=== PATIENT | female | born 1935 | race Caucasian/White ===

== ENCOUNTER 2016-11-21 12:48 | Day surgery (SDC) | payer OTHER, MEDICARE ==
[2016-11-20 11:37] VITALS: BMI 29.8
[2016-11-21] MEDS ORDERED: MIDAZOLAM HCL 2 MG/2 ML SINGLE DOSE VIAL ONE (14:02)
[2016-11-21] MEDS ORDERED: LIDOCAINE HCL/PF 2% SDV 5ML VIAL ONE (14:03)
[2016-11-21] MEDS ORDERED: PROPOFOL 20 ML ONE ×3 (14:03→15:14)
[2016-11-21] MEDS ORDERED: DEXAMETHASONE SOD PHOSPHATE 4 MG/1 ML VIAL ONE (14:03)
[2016-11-21] MEDS ORDERED: SUCCINYLCHOLINE CHLORIDE 200 MG/10 ML VIAL ONE (14:07)
--- NOTE | 2016-11-21 14:44 | HP ---
Past Medical History - Primary Care Physician PCP:: Truong Escobar - Admission Chief Complaint: 81 yo female with endometrial fluid and hepertrophy on pelvic US admitted for hysteroscopy and D&C - Past Medical History BIOMEDICAL ENGINEERING TECHNICIAN: Yes: Other (recent head trauma after fall with hematoma that resolved) Cardiovascular: Yes: Hyperlipdemia Pulmonary: No: Asthma, Bronchitis, Cancer, COPD, O2 Dependent, Pneumonia, Previously Intubated, Pulmonary Embolus, Pulmonary Fibrosis, Sleep Apnea, Other Gastrointestinal: Yes: Other (cholelithiasis) Hepatobiliary: Yes: Cholelithiasis Renal/: No: Renal Failure, Renal Inusuff, BPH, Cancer, Hematuria, Hemodialysis , Neurogenic Bladder, Renal Calculi, UTI, Other ...Para: 2 ( x 2) Heme/Onc: No: Anemia, B12 Deficiency, Bleeding Disorder, Cancer, Current Chemotherapy, Current Radiation Therapy, Hemochromatosis, Hypercoaguable State, Myeloproliferative Synd, Sickle Cell Disease, Sickle Cell Trait, Thrombocytopenia, Other Infectious Disease: No: AIDS, C-Diff, Herpes Zoster, HIV, MRSA, STD's, Tuberculosis, VREF, Other Psych: No: Addictions, Anxiety, Bipolar, Depression, Panic, Psychosis, Schizophrenia, Other Musculoskeletal: No: Bursitis, Chronic low back pain, Hemiparesis, Hemiplegia, Osteoarthritis, Paraplegia, Other Rheumatology: No: Fibromyalgia, Gout, Lupus, Rheumatoid Arthritis, Sarcoidosis, Vasculitis, Other ENT: No: Allergic Rhinitis, Sinusitis, Other Endocrine: No: [place]'s Disease, [place]'s Disease, Diabetes Insipidus, Diabetes Mellitus, Hyperparathyroidism, Hyperthyroidism, Hypothyroidism, Osteopenia, SIADH, Other Dermatology: No: Basal Cell, Cellulitis, Eczema, Melanoma, Psoriasis, Squamous Cell, Other Additional Medical History: High cholesterol - Past Surgical History Past Surgical History: Yes: Arthrosocopy (Left knee, ancle), Breast Biopsy ( left breast lumpectomy and rad tx), Cholecystectomy Hx Myomectomy: No Hx Transabdominal Cerclage: No Additional Surgical History: D&C x 2 - Advance Directives Advance Directives: Yes: Living Will - Smoking History Smoking history: Former smoker Have you smoked in the past 12 months: No If you are a former smoker, when did you quit?: ~1984 - Alcohol/Substance Use Hx Alcohol Use: Yes (SOCIALLY) History of Substance Use: reports: None - Social History Usual Living Arrangement: Yes: Alone ADL: Independent Occupation: Retired History of Recent Travel: No Home Medications - Allergies Allergies/Adverse Reactions: Allergies Allergy/AdvReac Type Severity Reaction Status Date / Time Sulfa (Sulfonamide Allergy Severe Rash Verified 01/09/16 07:46 Antibiotics) - Home Medications Home Medications: Ambulatory Orders Timolol 0.25% [Timoptic 0.25%] 1 drop OD DAILY 01/06/16 Cholecalciferol (Vitamin D3) [Vitamin D3] 2,000 unit PO DAILY 11/20/16 Fluticasone/Vilanterol [Breo Ellipta 100-25 Mcg INH] 1 each IH DAILY 11/20/16 Zolpidem Tartrate [Ambien] 5 mg PO HS 11/20/16 Family Disease History - Family Disease History Family History: Unremarkable Review of Systems - Review of Systems Constitutional: reports: No Symptoms Eyes: reports: No Symptoms HENT: reports: No Symptoms Neck: reports: No Symptoms Cardiovascular: reports: No Symptoms Respiratory: reports: No Symptoms Gastrointestinal: reports: No Symptoms Genitourinary: reports: No Symptoms Breasts: reports: No Symptoms Reported Musculoskeletal: reports: No Symptoms Integumentary: reports: No Symptoms Neurological: reports: No Symptoms Endocrine: reports: No Symptoms Hematology/Lymphatic: reports: No Symptoms Psychiatric: reports: No Symptoms Pain Intensity: 0 Physical Exam-SERVICE CONSULTANT Vital Signs: Vital Signs Temperature 97.4 F L 11/21/16 13:46 Pulse Rate 61 11/21/16 13:46 Respiratory Rate 18 11/21/16 13:46 Blood Pressure 143/75 11/21/16 13:46 O2 Sat by Pulse Oximetry (%) 95 11/21/16 13:46 Constitutional: Yes: Well Nourished, No Distress, Calm Eyes: Yes: WNL, Conjunctiva Clear, EOM Intact HENT: Yes: WNL, Atraumatic, Normocephalic Neck: Yes: WNL, Supple, Trachea Midline Cardiovascular: Yes: WNL, Regular Rate and Rhythm Respiratory: Yes: WNL, Regular, CTA Bilaterally Gastrointestinal: Yes: WNL, Normal Bowel Sounds, Soft ...Rectal Exam: Yes: Deferred Renal/: Yes: WNL Pelvis: Yes: WNL External Genitalia: Yes: Normal Internal Exam Deferred: No Vaginal Exam: Yes: Normal Cervix: Yes: Normal Uterus: Yes: Normal Adnexa: Normal: Left, Right Musculoskeletal: Yes: WNL Extremities: Yes: WNL Edema: No Integumentary: Yes: WNL Neurological: Yes: WNL, Alert, Oriented ...Motor Strength: WNL Psychiatric: Yes: WNL, Alert, Oriented Imaging - Results Ultrasound: Report Reviewed Assessment/Plan 81 yo female with endometrial fluid and hypertrophy on pelvic US admitted for hysteroscopy and D&C. The risks, benefits, alternatives of surgery were discussed. The risks of infection, bleeding, perforation, pain, scarring, etc were discussed. The pt requested to proceed.
[2016-11-21] MEDS ORDERED: ceFAZolin SODIUM 1 GM VIAL ONE (15:20)
[2016-11-21] MEDS ORDERED: ceFAZolin SODIUM 1 GM VIAL IVPB ONE (15:20)
[2016-11-21] MEDS ORDERED: oxyCODONE HCL 5 MG TABLET PO PRN (15:42)
[2016-11-21] MEDS ORDERED: IBUPROFEN 800 MG/8 ML IJ IVPB PRN (15:42)
[2016-11-21] MEDS ORDERED: ONDANSETRON 4 MG/2 ML VIAL IVPUSH PRN (15:42)
[2016-11-21] MEDS ORDERED: LACTATED RINGERS SOLUTION 1,000 ML IV SCH (15:45)
[2016-11-21] MEDS ORDERED: IBUPROFEN 800 MG/8 ML IJ IVPB ONE (15:54)
--- NOTE | 2016-11-21 16:02 | OP ---
Operative Note - Note: Operative Date: 11/21/16 Pre-Operative Diagnosis: Endometrial Hyperplasia. Personal Hx breast malignancy Operation: Hysteroscopy, D&C Findings: Enlarged uterine cavity with hematometria and atrophic endometrial atrophy. Post-Operative Diagnosis: Same as Pre-op Surgeon: Truong Escobar Anesthesiologist/TRUCK REPAIR SERVICE ESTIMATOR: Marily Barrow Anesthesia: MAC Specimens Removed: Endometrial curettings Estimated Blood Loss (mls): 5 Drains, Volume Out (mls): 0 Blood Volume Replaced (mls): 5 Fluid Volume Replaced (mls): 500 Operative Report Dictated: Yes
[2016-11-21 16:46] VITALS: TEMP 97.8
[2016-11-21 17:52] VITALS: BP 137/65; PULSE 73
--- NOTE | 2016-11-22 08:24 | OP ---
DATE OF OPERATION: 11/21/2016 PREOPERATIVE DIAGNOSIS: Endometrial hyperplasia, personal history of breast malignancy. POSTOPERATIVE DIAGNOSIS: Endometrial hyperplasia, personal history of breast malignancy. PROCEDURE: Hysteroscopy, dilation and curettage. SURGEON: Truong Escobar MD SUBASSEMBLY ASSEMBLER: None. ANESTHESIOLOGIST: Marily Barrow MD ANESTHESIA: Monitored anesthesia care. COMPLICATIONS: None. IV FLUIDS: 500 mL. ESTIMATED BLOOD LOSS: 5 mL. COMPLICATIONS: None. PATHOLOGY: Endometrial curettings. FINDINGS: Examination under anesthesia revealed a small, slightly retroverted uterus. No pelvic or adnexal masses were noted. During hysteroscopy, a stenotic cervical os was noted. Upon further hysteroscopy, hematometria noted with uterine cavity filled with old blood. Atrophic endometrial lining was also observed. DESCRIPTION OF PROCEDURE: The patient was met preoperatively. Risks, benefits, and alternatives of surgery were discussed in detail. All questions were answered. The patient was then brought to the OR with the IV running. She was placed on the surgical table in the supine position. Monitored anesthesia care was established without difficulty. The patient was then placed in a dorsal lithotomy position using adjustable Scott stirrups. The patient was examined under anesthesia with the findings as described above. She was then prepped and draped in the usual sterile fashion. A sterile speculum was introduced inside the vagina with good visualization of the cervix. The anterior cervical lip was grasped with a single-tooth tenaculum. The cervical os was then dilated using graduated Ching dilators. Care was taken to avoid uterine perforation. Once the cervical os was dilated to accommodate size with 17 Ching dilator, a hysteroscope was carefully advanced into the uterine cavity. Once the uterine cavity was entered, a large amount of old blood was noted. The uterine cavity was then irrigated, and upon further hysteroscopy, atrophic endometrial lining was noted. The hysteroscope was then removed from the uterus. Sharp curettage was performed and tissue sent to pathology. Once the curettage was completed, the hysteroscope was once again advanced into the uterine cavity. The cavity appeared to be within normal limits. Good hemostasis was confirmed. All of the instruments were then removed from the patient. Sponge, lap, and instrument counts were correct. The patient was transferred to recovery room in stable condition. Johanna [id number]
--- NOTE | 2016-11-23 11:43 | PATH ---
Surgical Pathology Report Patient Name: TIAGO AKHTAR [facility]. Rec. #: [id number] /Age/Gender: 1935 (Age: 81) / F Account: [id number] Location: [facility] Taken: 11/21/2016 Received: 11/22/2016 Reported: 11/23/2016 Physicians: Truong Escobra M.D. Specimen(s) Received ENDOMETRIAL CURETTINGS Clinical History Endometrial thickening, personal history of breast cancer Final Diagnosis ENDOMETRIUM, CURETTAGE: FOCALLY POLYPOID FRAGMENTS OF INACTIVE/ATROPHIC ENDOMETRIUM. SCANT FRAGMENTS OF BENIGN ENDOCERVICAL TISSUE. SCANT FRAGMENTS OF BENIGN SQUAMOUS EPITHELIUM. Electronically Signed Kevin Crawford M.D. Gross Description Received in formalin labeled "endometrial curetting" is a 0.9 x 0.8 x 0.1 cm aggregate of mayes red soft tissue fragments. The formalin is filtered and the specimen is entirely submitted in one cassette. /11/22/2016 saudi11/22/2016
== END 2016-11-21 18:05 | disposition home or self-care (01) ==
LOC: JASU-SURG 12:48
PROVIDERS: ATTEND Obstetrics & Gynecology
PROC: 0UDB8ZX Extraction of Endometrium, Via Natural or Artificial Opening Endoscopic, Diagnostic (ICD-10-PCS; principal; 2016-11-21 14:00)
DX: N85.00 Endometrial hyperplasia, unspecified (principal); Z85.3 Personal history of malignant neoplasm of breast
CPT/HCPCS: 86850; 86900; 86901; 88305-TC; 94760